=== PATIENT | male | born 1980 | race Two or more races ===

== ENCOUNTER 2020-12-09 09:04 | Inpatient (IN) | payer BC ==
[2020-12-09 09:58] VITALS: BMI 25.1
[2020-12-09] MEDS ORDERED: MAGNESIUM CITRATE 300 ML BOTTLE PO PRN (10:25)
[2020-12-09] MEDS ORDERED: ACETAMINOPHEN 325 MG TABLET (FP) PO PRN (10:25)
[2020-12-09] MEDS ORDERED: METHOCARBAMOL 500 MG TABLET PO PRN (10:25)
[2020-12-09] MEDS ORDERED: MENTHOL/PHENOL 1 EACH UD MM PRN (10:25)
[2020-12-09] MEDS ORDERED: BISMUTH SUBSALICYLATE 524 MG/30 ML UD PO PRN (10:25)
[2020-12-09] MEDS ORDERED: NICOTINE POLACRILEX 2 MG GUM BUC PRN (10:25)
[2020-12-09] MEDS ORDERED: MAGNESIUM HYDROX 2400MG/30ML ORAL SUSPENSION 30 ML CUP PO PRN (10:25)
[2020-12-09] MEDS ORDERED: cloNIDine HCL 0.1 MG TABLET PO PRN (10:25)
[2020-12-09] MEDS ORDERED: MAG HYDROX/AL HYDROX/SIMETH 30 ML UNIT-DOSE CUP PO PRN (10:25)
[2020-12-09] MEDS ORDERED: METHADONE HCL 10 MG TABLET (FOR DETOX USE ONLY) PO ONE (11:00)
[2020-12-09] MEDS: ARIPiprazole 10 MG TABLET PO SCH (12:21)
[2020-12-09] MEDS: PRENATAL VITAMINS W/ FOLIC ACID TABLET (FP) PO SCH (12:22)
[2020-12-09] MEDS: IBUPROFEN 400 MG TABLET (FP) PO PRN (12:22)
[2020-12-09] MEDS: BENZTROPINE MESYLATE 1 MG TABLET PO SCH (12:22)
[2020-12-09] MEDS: NICOTINE 14 MG/24 HOURS TOPICAL PATCH TD SCH (12:22)
[2020-12-09] MEDS: ALBUTEROL SO4 HFA INHALER IH SCH ×4 (12:29→22:15)
[2020-12-09] MEDS: hydrOXYzine PAMOATE 25 MG CAPSULE (FP) PO SCH ×3 (14:46→22:15)
[2020-12-09 15:29] LABS: HEMATOCRIT 41.7 % (35.4-49); HEMOGLOBIN 13.6 GM/dL (11.7-16.9); MCHC 32.7 g/dl (32.0-35.9); MEAN CELL VOLUME 91.6 fl (80-96); MEAN PLT VOLUME 8.4 fl (7.5-11.1); PLATELET COUNT 297 K/MM3 (134-434); RBC 4.55 M/mm3 (4.00-5.60); RDW 14.8 % (11.9-15.9); WHITE BLOOD COUNT 14.2 K/mm3 (4.0-10.0)
[2020-12-09 15:33] LABS: POTASSIUM 3.5 mmol/L (3.5-5.1)
[2020-12-09 15:39] LABS: ALBUMIN 4.2 g/dl (3.4-5.0); BLOOD UREA NITROGEN 16.1 mg/dL (7-18); CALCIUM 8.8 mg/dL (8.5-10.1)
[2020-12-09 15:42] LABS: CREATININE 0.9 mg/dL (0.55-1.3)
[2020-12-09 15:44] LABS: TOT PROT 7.4 g/dl (6.4-8.2)
[2020-12-09] MEDS: ONDANSETRON *ODT* 4 MG TABLET SL PRN (15:53)
[2020-12-09] MEDS: THIAMINE HCL 100 MG TABLET (FP) PO SCH (22:15)
[2020-12-09] MEDS: MELATONIN 5 MG TABLETS PO SCH (22:15)
[2020-12-09] MEDS: traZODone HCL 50 MG TABLET (FP) PO SCH (22:15)
[2020-12-10] MEDS: ALBUTEROL SO4 HFA INHALER IH SCH ×6 (02:39→22:32)
[2020-12-10] MEDS: hydrOXYzine PAMOATE 25 MG CAPSULE (FP) PO SCH ×5 (05:43→22:32)
[2020-12-10] MEDS: ONDANSETRON *ODT* 4 MG TABLET SL PRN (05:45)
[2020-12-10] MEDS ORDERED: METHADONE HCL 10 MG TABLET (FOR DETOX USE ONLY) ONE (09:06)
[2020-12-10] MEDS ORDERED: METHADONE HCL 5 MG TABLET (FOR DETOX USE ONLY) ONE (09:06)
[2020-12-10] MEDS ORDERED: METHADONE (DETOX) 20 MG, METHADONE (DETOX) 5 MG PO ONE (10:00)
[2020-12-10] MEDS: PRENATAL VITAMINS W/ FOLIC ACID TABLET (FP) PO SCH (10:03)
[2020-12-10] MEDS: ARIPiprazole 10 MG TABLET PO SCH (10:03)
[2020-12-10] MEDS: BENZTROPINE MESYLATE 1 MG TABLET PO SCH (10:04)
[2020-12-10] MEDS: NICOTINE 14 MG/24 HOURS TOPICAL PATCH TD SCH (10:04)
[2020-12-10] MEDS: ACETAMINOPHEN 325 MG TABLET (FP) PO PRN ×2 (10:07→18:21)
[2020-12-10] MEDS: LIDOCAINE 5% TOPICAL PATCH TP SCH (14:47)
[2020-12-10] MEDS: THIAMINE HCL 100 MG TABLET (FP) PO SCH (22:31)
[2020-12-10] MEDS: MELATONIN 5 MG TABLETS PO SCH (22:31)
[2020-12-10] MEDS: LIDOCAINE PATCH REMOVAL MC SCH (22:32)
[2020-12-10] MEDS: traZODone HCL 50 MG TABLET (FP) PO SCH (22:32)
[2020-12-11] MEDS: ALBUTEROL SO4 HFA INHALER IH SCH ×6 (03:42→22:22)
[2020-12-11] MEDS: hydrOXYzine PAMOATE 25 MG CAPSULE (FP) PO SCH ×5 (06:37→22:22)
[2020-12-11] MEDS: ACETAMINOPHEN 325 MG TABLET (FP) PO PRN ×2 (06:58→18:04)
[2020-12-11] MEDS ORDERED: METHADONE HCL 10 MG TABLET (FOR DETOX USE ONLY) PO ONE (10:00)
[2020-12-11] MEDS: ARIPiprazole 10 MG TABLET PO SCH (10:15)
[2020-12-11] MEDS: PRENATAL VITAMINS W/ FOLIC ACID TABLET (FP) PO SCH (10:15)
[2020-12-11] MEDS: NICOTINE 14 MG/24 HOURS TOPICAL PATCH TD SCH (10:16)
[2020-12-11] MEDS: BENZTROPINE MESYLATE 1 MG TABLET PO SCH (10:16)
[2020-12-11] MEDS: LIDOCAINE 5% TOPICAL PATCH TP SCH (10:16)
[2020-12-11 10:18] LABS: BASO % 0.8 % (0-2.0); EOS % 5.4 % (0-4.5); HEMATOCRIT 39.9 % (35.4-49); HEMOGLOBIN 13.4 GM/dL (11.7-16.9); LYMPH % 31.4 % (8-40); MCH 30.6 pg (25.7-33.7); MCHC 33.7 g/dl (32.0-35.9); MEAN CELL VOLUME 90.9 fl (80-96); MEAN PLT VOLUME 8.1 fl (7.5-11.1); MONO % 11.3 % (3.8-10.2); NEUT % 51.1 % (42.8-82.8); PLATELET COUNT 285 K/MM3 (134-434); RBC 4.39 M/mm3 (4.00-5.60); RDW 14.3 % (11.9-15.9); WHITE BLOOD COUNT 6.6 K/mm3 (4.0-10.0)
[2020-12-11] MEDS ORDERED: LIDOCAINE VISCOUS 2% ORAL/TOP 20 ML UNIT-DOSE CUP MM PRN (15:12)
[2020-12-11] MEDS ORDERED: cloNIDine HCL 0.1 MG TABLET PO PRN (15:14)
[2020-12-11] MEDS: IBUPROFEN 400 MG TABLET (FP) PO PRN (18:05)
[2020-12-11] MEDS: THIAMINE HCL 100 MG TABLET (FP) PO SCH (22:22)
[2020-12-11] MEDS: LIDOCAINE PATCH REMOVAL MC SCH (22:23)
[2020-12-11] MEDS: MELATONIN 5 MG TABLETS PO SCH (22:23)
[2020-12-11] MEDS: traZODone HCL 50 MG TABLET (FP) PO SCH (22:23)
[2020-12-12] MEDS: hydrOXYzine PAMOATE 25 MG CAPSULE (FP) PO SCH ×5 (05:15→22:16)
[2020-12-12] MEDS: ALBUTEROL SO4 HFA INHALER IH SCH ×6 (05:16→22:16)
[2020-12-12] MEDS ORDERED: METHADONE HCL 5 MG TABLET (FOR DETOX USE ONLY) ONE (09:14)
[2020-12-12] MEDS ORDERED: METHADONE HCL 10 MG TABLET (FOR DETOX USE ONLY) ONE (09:14)
[2020-12-12] MEDS ORDERED: METHADONE (DETOX) 10 MG, METHADONE (DETOX) 5 MG PO ONE (10:00)
[2020-12-12] MEDS: BENZTROPINE MESYLATE 1 MG TABLET PO SCH (10:22)
[2020-12-12] MEDS: PRENATAL VITAMINS W/ FOLIC ACID TABLET (FP) PO SCH (10:22)
[2020-12-12] MEDS: ARIPiprazole 10 MG TABLET PO SCH (10:22)
[2020-12-12] MEDS: LIDOCAINE 5% TOPICAL PATCH TP SCH (10:23)
[2020-12-12] MEDS: NICOTINE 14 MG/24 HOURS TOPICAL PATCH TD SCH (10:23)
[2020-12-12] MEDS: IBUPROFEN 400 MG TABLET (FP) PO PRN (18:15)
[2020-12-12] MEDS: traZODone HCL 50 MG TABLET (FP) PO SCH (22:16)
[2020-12-12] MEDS: THIAMINE HCL 100 MG TABLET (FP) PO SCH (22:16)
[2020-12-12] MEDS: LIDOCAINE PATCH REMOVAL MC SCH (22:17)
[2020-12-12] MEDS: MELATONIN 5 MG TABLETS PO SCH (22:17)
[2020-12-13] MEDS: ALBUTEROL SO4 HFA INHALER IH SCH ×6 (02:53→22:08)
[2020-12-13] MEDS: ACETAMINOPHEN 325 MG TABLET (FP) PO PRN ×2 (03:42→12:55)
[2020-12-13] MEDS: hydrOXYzine PAMOATE 25 MG CAPSULE (FP) PO SCH ×5 (05:54→22:07)
[2020-12-13] MEDS: IBUPROFEN 400 MG TABLET (FP) PO PRN (05:55)
[2020-12-13] MEDS ORDERED: METHADONE HCL 10 MG TABLET (FOR DETOX USE ONLY) PO ONE (10:00)
[2020-12-13] MEDS: BENZTROPINE MESYLATE 1 MG TABLET PO SCH (10:21)
[2020-12-13] MEDS: ARIPiprazole 10 MG TABLET PO SCH (10:21)
[2020-12-13] MEDS: NICOTINE 14 MG/24 HOURS TOPICAL PATCH TD SCH (10:22)
[2020-12-13] MEDS: PRENATAL VITAMINS W/ FOLIC ACID TABLET (FP) PO SCH (10:22)
[2020-12-13] MEDS: LIDOCAINE 5% TOPICAL PATCH TP SCH (10:22)
[2020-12-13] MEDS ORDERED: MAGNESIUM HYDROX 2400MG/30ML ORAL SUSPENSION 30 ML CUP PO ONE (10:25)
[2020-12-13] MEDS: amLODIPine BESYLATE 5 MG TABLET (FP) PO SCH (11:15)
[2020-12-13] MEDS: BENZOCAINE 20 % GEL TUBE MM PRN (14:55)
[2020-12-13] MEDS: THIAMINE HCL 100 MG TABLET (FP) PO SCH (22:07)
[2020-12-13] MEDS: LIDOCAINE PATCH REMOVAL MC SCH (22:07)
[2020-12-13] MEDS: traZODone HCL 50 MG TABLET (FP) PO SCH (22:07)
[2020-12-13] MEDS: MELATONIN 5 MG TABLETS PO SCH (22:07)
[2020-12-14] MEDS: ALBUTEROL SO4 HFA INHALER IH SCH ×3 (02:03→09:37)
[2020-12-14] MEDS: hydrOXYzine PAMOATE 25 MG CAPSULE (FP) PO SCH ×2 (05:41→09:36)
[2020-12-14] MEDS: BENZOCAINE 20 % GEL TUBE MM PRN (05:44)
[2020-12-14] MEDS ORDERED: METHADONE HCL 5 MG TABLET (FOR DETOX USE ONLY) PO ONE (06:00)
[2020-12-14 07:33] VITALS: TEMP 97.3
[2020-12-14] MEDS: BENZTROPINE MESYLATE 1 MG TABLET PO SCH (09:36)
[2020-12-14] MEDS: amLODIPine BESYLATE 5 MG TABLET (FP) PO SCH (09:36)
[2020-12-14] MEDS: ARIPiprazole 10 MG TABLET PO SCH (09:36)
[2020-12-14] MEDS: LIDOCAINE 5% TOPICAL PATCH TP SCH (09:36)
[2020-12-14] MEDS: PRENATAL VITAMINS W/ FOLIC ACID TABLET (FP) PO SCH (09:37)
[2020-12-14] MEDS: NICOTINE 14 MG/24 HOURS TOPICAL PATCH TD SCH (09:37)
[2020-12-14 09:48] VITALS: BP 147/85; PULSE 292
== END 2020-12-14 11:18 | disposition other institution (70) | DRG 773 ==
LOC: YASAS 09:04 → Y6N 10:58
PROVIDERS: ADMIT Allergy & Immunology; ATTEND Allergy & Immunology
PROC: HZ2ZZZZ Detoxification Services for Substance Abuse Treatment (ICD-10-PCS; principal; 2020-12-09)
DX: F11.23 Opioid dependence with withdrawal (principal); F14.20 Cocaine dependence, uncomplicated; F13.20 Sedative, hypnotic or anxiolytic dependence, uncomplicated; F19.20 Other psychoactive substance dependence, uncomplicated; F17.210 Nicotine dependence, cigarettes, uncomplicated; F25.9 Schizoaffective disorder, unspecified; F31.9 Bipolar disorder, unspecified; F43.10 Post-traumatic stress disorder, unspecified; F19.282 Other psychoactive substance dependence with psychoactive substance-induced sleep disorder; D72.829 Elevated white blood cell count, unspecified; J45.909 Unspecified asthma, uncomplicated; K08.89 Other specified disorders of teeth and supporting structures; R74.01 Elevation of levels of liver transaminase levels; R73.9 Hyperglycemia, unspecified; Z62.810 Personal history of physical and sexual abuse in childhood; Z59.0 Homelessness
CPT/HCPCS: 36415; 80053; 82947; 82962; 85025; 85027; 86780; 93005; 93010; C9803; J0735; Q0162; U0003

== ENCOUNTER 2020-12-14 11:28 | Inpatient (IN) | payer BC ==
[2020-12-14] MEDS ORDERED: MENTHOL/PHENOL 1 EACH UD MM PRN (13:52)
[2020-12-14] MEDS ORDERED: guaiFENesin 200 MG/10 ML 10 ML UNIT-DOSE CUPS PO PRN (13:52)
[2020-12-14] MEDS ORDERED: LOPERAMIDE HCL 2 MG CAPSULE PO PRN (13:52)
[2020-12-14] MEDS ORDERED: MAGNESIUM CITRATE 300 ML BOTTLE PO PRN (13:52)
[2020-12-14] MEDS ORDERED: ACETAMINOPHEN 325 MG TABLET (FP) PO PRN (13:52)
[2020-12-14] MEDS ORDERED: MAG HYDROX/AL HYDROX/SIMETH 30 ML UNIT-DOSE CUP PO PRN (13:52)
[2020-12-14] MEDS ORDERED: P-EPHED 60MG/TRIPROLIDI 2.5MG TABLET PO PRN (13:52)
[2020-12-14] MEDS ORDERED: MAGNESIUM HYDROX 2400MG/30ML ORAL SUSPENSION 30 ML CUP PO PRN (13:52)
[2020-12-14] MEDS ORDERED: ALBUTEROL SO4 HFA INHALER IH PRN (13:53)
[2020-12-14] MEDS: BENZOCAINE 20 % GEL TUBE MM PRN ×2 (15:31→21:28)
[2020-12-14] MEDS: IBUPROFEN 400 MG TABLET (FP) PO PRN (15:31)
[2020-12-14] MEDS: METHOCARBAMOL 500 MG TABLET PO SCH ×3 (15:35→21:25)
[2020-12-14] MEDS: LIDOCAINE PATCH REMOVAL MC SCH (21:25)
[2020-12-14] MEDS: MELATONIN 5 MG TABLETS PO SCH (21:25)
[2020-12-14] MEDS: THIAMINE HCL 100 MG TABLET (FP) PO SCH (21:25)
[2020-12-14] MEDS: traZODone HCL 50 MG TABLET (FP) PO SCH (21:26)
[2020-12-15] MEDS: IBUPROFEN 400 MG TABLET (FP) PO PRN (06:06)
[2020-12-15] MEDS ORDERED: MASKS NR ONE (07:27)
[2020-12-15] MEDS: ARIPiprazole 10 MG TABLET PO SCH (10:10)
[2020-12-15] MEDS: METHOCARBAMOL 500 MG TABLET PO SCH ×4 (10:10→21:07)
[2020-12-15] MEDS: BENZTROPINE MESYLATE 1 MG TABLET PO SCH (10:10)
[2020-12-15] MEDS: PRENATAL VITAMINS W/ FOLIC ACID TABLET (FP) PO SCH (10:11)
[2020-12-15] MEDS: amLODIPine BESYLATE 5 MG TABLET (FP) PO SCH (10:11)
[2020-12-15] MEDS: LIDOCAINE 5% TOPICAL PATCH TP SCH (10:12)
[2020-12-15] MEDS: NICOTINE 14 MG/24 HOURS TOPICAL PATCH TD SCH (10:12)
[2020-12-15] MEDS ORDERED: PNEUMOC 13-VAL CONJ-DIP CRM/PF 0.5 ML DISP.SYRIN IM ONE (15:54)
[2020-12-15] MEDS: THIAMINE HCL 100 MG TABLET (FP) PO SCH (21:06)
[2020-12-15] MEDS: MELATONIN 5 MG TABLETS PO SCH (21:06)
[2020-12-15] MEDS: traZODone HCL 50 MG TABLET (FP) PO SCH (21:07)
[2020-12-15] MEDS: LIDOCAINE PATCH REMOVAL MC SCH (21:08)
[2020-12-15] MEDS: hydrOXYzine PAMOATE 25 MG CAPSULE (FP) PO PRN (23:46)
[2020-12-16] MEDS: NICOTINE POLACRILEX 2 MG GUM BUC PRN ×2 (06:33→14:33)
[2020-12-16] MEDS ORDERED: ARIPiprazole 5 MG TABLET ONE (08:44)
[2020-12-16] MEDS: METHOCARBAMOL 500 MG TABLET PO SCH ×4 (10:02→21:15)
[2020-12-16] MEDS: ARIPiprazole 10 MG TABLET PO SCH (10:02)
[2020-12-16] MEDS: LIDOCAINE 5% TOPICAL PATCH TP SCH (10:02)
[2020-12-16] MEDS: BENZTROPINE MESYLATE 1 MG TABLET PO SCH (10:03)
[2020-12-16] MEDS: PRENATAL VITAMINS W/ FOLIC ACID TABLET (FP) PO SCH (10:03)
[2020-12-16] MEDS: amLODIPine BESYLATE 5 MG TABLET (FP) PO SCH (10:03)
[2020-12-16] MEDS: NICOTINE 14 MG/24 HOURS TOPICAL PATCH TD SCH (10:05)
[2020-12-16] MEDS ORDERED: PNEUMOCOCCAL 23 VACCINE 0.5 ML VIAL IM ONE (12:00)
[2020-12-16] MEDS ORDERED: FLU VACCINE (FLULAVAL) PF 60 MCG/0.5 ML SYRINGE 2020-2021 IM ONE (12:00)
[2020-12-16] MEDS: MELATONIN 5 MG TABLETS PO SCH (21:15)
[2020-12-16] MEDS: THIAMINE HCL 100 MG TABLET (FP) PO SCH (21:15)
[2020-12-16] MEDS: LIDOCAINE PATCH REMOVAL MC SCH (21:15)
[2020-12-16] MEDS: traZODone HCL 100 MG TABLET (FP) PO SCH (21:16)
[2020-12-17] MEDS: IBUPROFEN 400 MG TABLET (FP) PO PRN (02:52)
[2020-12-17] MEDS: NICOTINE POLACRILEX 2 MG GUM BUC PRN ×2 (06:05→12:15)
[2020-12-17] MEDS ORDERED: MASKS NR ONE (07:15)
[2020-12-17] MEDS ORDERED: ARIPiprazole 5 MG TABLET ONE (08:17)
[2020-12-17] MEDS: BENZTROPINE MESYLATE 1 MG TABLET PO SCH (09:46)
[2020-12-17] MEDS: ARIPiprazole 10 MG TABLET PO SCH (09:46)
[2020-12-17] MEDS: amLODIPine BESYLATE 5 MG TABLET (FP) PO SCH (09:46)
[2020-12-17] MEDS: LIDOCAINE 5% TOPICAL PATCH TP SCH (09:47)
[2020-12-17] MEDS: PRENATAL VITAMINS W/ FOLIC ACID TABLET (FP) PO SCH (09:47)
[2020-12-17] MEDS: METHOCARBAMOL 500 MG TABLET PO SCH ×4 (09:47→21:11)
[2020-12-17] MEDS: NICOTINE 14 MG/24 HOURS TOPICAL PATCH TD SCH (09:47)
[2020-12-17] MEDS: traZODone HCL 100 MG TABLET (FP) PO SCH (21:11)
[2020-12-17] MEDS: LIDOCAINE PATCH REMOVAL MC SCH (21:11)
[2020-12-17] MEDS: THIAMINE HCL 100 MG TABLET (FP) PO SCH (21:11)
[2020-12-17] MEDS: MELATONIN 5 MG TABLETS PO SCH (21:12)
[2020-12-18] MEDS: BENZOCAINE 20 % GEL TUBE MM PRN ×2 (07:16→19:47)
[2020-12-18] MEDS ORDERED: ARIPiprazole 5 MG TABLET ONE (08:20)
[2020-12-18] MEDS: NICOTINE 14 MG/24 HOURS TOPICAL PATCH TD SCH (09:43)
[2020-12-18] MEDS: ARIPiprazole 10 MG TABLET PO SCH (09:44)
[2020-12-18] MEDS: amLODIPine BESYLATE 5 MG TABLET (FP) PO SCH (09:44)
[2020-12-18] MEDS: METHOCARBAMOL 500 MG TABLET PO SCH ×4 (09:44→21:04)
[2020-12-18] MEDS: PRENATAL VITAMINS W/ FOLIC ACID TABLET (FP) PO SCH (09:44)
[2020-12-18] MEDS: BENZTROPINE MESYLATE 1 MG TABLET PO SCH (09:44)
[2020-12-18] MEDS: LIDOCAINE 5% TOPICAL PATCH TP SCH (09:45)
[2020-12-18] MEDS: NICOTINE POLACRILEX 2 MG GUM BUC PRN ×3 (12:38→18:18)
[2020-12-18] MEDS: MELATONIN 5 MG TABLETS PO SCH (21:04)
[2020-12-18] MEDS: traZODone HCL 100 MG TABLET (FP) PO SCH (21:04)
[2020-12-18] MEDS: THIAMINE HCL 100 MG TABLET (FP) PO SCH (21:05)
[2020-12-18] MEDS: LIDOCAINE PATCH REMOVAL MC SCH (21:05)
[2020-12-19] MEDS: NICOTINE POLACRILEX 2 MG GUM BUC PRN ×3 (06:17→19:48)
[2020-12-19] MEDS ORDERED: PT OWN MED DRAWER 7, Y5N ONE (09:03)
[2020-12-19] MEDS: PRENATAL VITAMINS W/ FOLIC ACID TABLET (FP) PO SCH (09:56)
[2020-12-19] MEDS: NICOTINE 14 MG/24 HOURS TOPICAL PATCH TD SCH (09:56)
[2020-12-19] MEDS: amLODIPine BESYLATE 5 MG TABLET (FP) PO SCH (09:56)
[2020-12-19] MEDS: LIDOCAINE 5% TOPICAL PATCH TP SCH (09:56)
[2020-12-19] MEDS: BENZTROPINE MESYLATE 1 MG TABLET PO SCH (09:56)
[2020-12-19] MEDS: ARIPiprazole 10 MG TABLET PO SCH (09:56)
[2020-12-19] MEDS: METHOCARBAMOL 500 MG TABLET PO SCH ×4 (09:57→21:13)
[2020-12-19] MEDS ORDERED: MASKS NR ONE (16:51)
[2020-12-19] MEDS: THIAMINE HCL 100 MG TABLET (FP) PO SCH (21:13)
[2020-12-19] MEDS: traZODone HCL 100 MG TABLET (FP) PO SCH (21:13)
[2020-12-19] MEDS: MELATONIN 5 MG TABLETS PO SCH (21:13)
[2020-12-19] MEDS: LIDOCAINE PATCH REMOVAL MC SCH (21:14)
[2020-12-20] MEDS ORDERED: ARIPiprazole 5 MG TABLET ONE ×2 (08:54→09:50)
[2020-12-20] MEDS: LIDOCAINE 5% TOPICAL PATCH TP SCH (09:48)
[2020-12-20] MEDS: NICOTINE 14 MG/24 HOURS TOPICAL PATCH TD SCH (09:48)
[2020-12-20] MEDS: PRENATAL VITAMINS W/ FOLIC ACID TABLET (FP) PO SCH (09:48)
[2020-12-20] MEDS: amLODIPine BESYLATE 5 MG TABLET (FP) PO SCH (09:49)
[2020-12-20] MEDS: METHOCARBAMOL 500 MG TABLET PO SCH ×4 (09:51→21:10)
[2020-12-20] MEDS: BENZTROPINE MESYLATE 1 MG TABLET PO SCH (09:51)
[2020-12-20] MEDS: ARIPiprazole 10 MG TABLET PO SCH (09:51)
[2020-12-20] MEDS: NICOTINE POLACRILEX 2 MG GUM BUC PRN ×4 (09:53→19:18)
[2020-12-20 15:49] LABS: HIV INTERPRETATION NEGATIVE (NEGATIVE)
[2020-12-20] MEDS: THIAMINE HCL 100 MG TABLET (FP) PO SCH (21:10)
[2020-12-20] MEDS: traZODone HCL 100 MG TABLET (FP) PO SCH (21:10)
[2020-12-20] MEDS: hydrOXYzine PAMOATE 25 MG CAPSULE (FP) PO PRN (21:10)
[2020-12-20] MEDS: MELATONIN 5 MG TABLETS PO SCH (21:10)
[2020-12-20] MEDS: LIDOCAINE PATCH REMOVAL MC SCH (21:10)
[2020-12-21 07:11] VITALS: TEMP 97.5
[2020-12-21] MEDS: NICOTINE POLACRILEX 2 MG GUM BUC PRN (07:42)
[2020-12-21] MEDS ORDERED: ARIPiprazole 5 MG TABLET ONE (09:25)
[2020-12-21] MEDS: PRENATAL VITAMINS W/ FOLIC ACID TABLET (FP) PO SCH (10:26)
[2020-12-21] MEDS: LIDOCAINE 5% TOPICAL PATCH TP SCH (10:26)
[2020-12-21] MEDS: amLODIPine BESYLATE 5 MG TABLET (FP) PO SCH (10:27)
[2020-12-21] MEDS: NICOTINE 14 MG/24 HOURS TOPICAL PATCH TD SCH (10:27)
[2020-12-21] MEDS: BENZTROPINE MESYLATE 1 MG TABLET PO SCH (10:27)
[2020-12-21] MEDS: METHOCARBAMOL 500 MG TABLET PO SCH (10:28)
[2020-12-21] MEDS: BENZOCAINE 20 % GEL TUBE MM PRN (10:28)
[2020-12-21] MEDS: ARIPiprazole 10 MG TABLET PO SCH (10:28)
[2020-12-21 11:15] VITALS: BP 147/83; PULSE 99
== END 2020-12-21 10:57 | disposition left against medical advice (07) | DRG 770 ==
LOC: YASAS 11:28 → Y3E 11:29
PROVIDERS: ADMIT Allergy & Immunology; ATTEND Allergy & Immunology
PROC: HZ42ZZZ Group Counseling for Substance Abuse Treatment, Cognitive-Behavioral (ICD-10-PCS; principal; 2020-12-14)
DX: F11.20 Opioid dependence, uncomplicated (principal); F14.20 Cocaine dependence, uncomplicated; F13.20 Sedative, hypnotic or anxiolytic dependence, uncomplicated; F12.20 Cannabis dependence, uncomplicated; F17.210 Nicotine dependence, cigarettes, uncomplicated; F25.0 Schizoaffective disorder, bipolar type; F43.10 Post-traumatic stress disorder, unspecified; Z91.013 Allergy to seafood; Z59.0 Homelessness
CPT/HCPCS: 36415; 82962; 87389; 90732; C9803; G0008; G0009; Q2036; U0003